=== PATIENT | female | born 1970 | race Hispanic/Latino ===

== ENCOUNTER 2017-07-23 12:39 | Outpatient (CLI) | payer OTHER ==
--- NOTE | 2017-07-29 14:25 | MMO ---
BILATERAL SCREENING MAMMOGRAM: Date: 07/23/17 INDICATION: Annual exam. COMPARISON: Prior exam dated 10/26/14. FINDINGS: Interpretation of this exam was assisted with computer-aided detection. The breast parenchyma is heterogeneously dense. No suspicious mass, cluster of microcalcifications, or area of architectural distortion is evident. IMPRESSION: BIRADS 1: Negative Recommend routine annual mammographic screening. POS: [facility]
== END 2017-07-23 12:40 | disposition home or self-care (01) ==
LOC: SCSMAMMO 12:39
PROVIDERS: ATTEND Family Medicine
DX: Z12.31 Encounter for screening mammogram for malignant neoplasm of breast (principal)
CPT/HCPCS: 77067